=== PATIENT | female | born 1950 | race Caucasian/White ===

== ENCOUNTER 2019-10-08 19:51 | Inpatient (IN) | payer MEDICARE, OTHER ==
[~2019-10-08] VITALS: Ht 162.6 cm; Wt 72.2 kg
[2019-10-08] MEDS ORDERED: ASPIRIN 81 MG CHEW (CHILDREN'S ASA) PO ONE (20:30)
[2019-10-08 20:42] LABS: BASOPHILS # (AUTO) 0.1 10^3/uL (0.0-0.1); BASOPHILS % (AUTO) 2 % (0-10); EOSINOPHILS # (AUTO) 0.1 10^3/uL (0.0-0.3); EOSINOPHILS % (AUTO) 2 % (0-10); HEMATOCRIT 40 % (35-52); HEMOGLOBIN 13.7 G/DL (11.5-16.0); LYMPHOCYTES # (AUTO) 1.4 X 10^3 (1.0-4.0); LYMPHOCYTES % (AUTO) 17 % (12-44); MEAN CORPUSCULAR HEMOGLOBIN 29 PG (25-34); MEAN CORPUSCULAR HGB CONC 34 G/DL (32-36); MEAN CORPUSCULAR VOLUME 85 FL (80-99); MEAN PLATELET VOLUME 11.6 FL (7.4-10.4); MONOCYTES # (AUTO) 0.8 X 10^3 (0.0-1.0); MONOCYTES % (AUTO) 10 % (0-12); NEUTROPHILS # (AUTO) 5.7 X 10^3 (1.8-7.8); NEUTROPHILS % (AUTO) 70 % (42-75); PLATELET COUNT 283 10^3/uL (130-400); RED CELL DISTRIBUTION WIDTH 12.8 % (10.0-14.5); WHITE BLOOD COUNT 8.1 10^3/uL (4.3-11.0)
[2019-10-08 20:53] LABS: INR 0.9 (0.8-1.4); PROTHROMBIN TIME PATIENT 12.6 SEC (12.2-14.7)
--- NOTE | 2019-10-08 21:00 | Diagnostic Imaging Report ---
INDICATION: History of previous cardiac surgery. Abnormal sensation in chest, dizziness TECHNIQUE: Two view chest 8:17 PM CORRELATION STUDY: None FINDINGS: Poststernotomy changes. Heart size and vasculature within normal limits. The lungs are clear with no consolidating infiltrate. There is no significant pleural effusion or pneumothorax. Visualized osseous structures are unremarkable. IMPRESSION: 1. Poststernotomy changes. Negative for acute abnormality. Dictated by: Dictated on workstation # [id number]
[2019-10-08 21:21] LABS: BUN/CREATININE RATIO 30; CARBON DIOXIDE 13 MMOL/L (21-32); CHLORIDE 94 MMOL/L (98-107); CREATININE SERUM 0.77 MG/DL (0.60-1.30); GFR ESTIMATED > 60; POTASSIUM 4.6 MMOL/L (3.6-5.0); SODIUM 131 MMOL/L (135-145)
[2019-10-08 21:22] LABS: BILIRUBIN,TOTAL 0.4 MG/DL (0.1-1.0); CALCIUM 9.5 MG/DL (8.5-10.1); GLUCOSE 547 MG/DL (70-105)
[2019-10-08 21:23] LABS: ALANINE AMINOTRANSFERASE 16 U/L (0-55); ALBUMIN 4.5 GM/DL (3.2-4.5); ALKALINE PHOSPHATASE 88 U/L (40-136); TOTAL PROTEIN 7.7 GM/DL (6.4-8.2)
--- NOTE | 2019-10-08 21:24 | ED Cardiac General ---
History of Present Illness General Chief Complaint: Chest Pain Stated Complaint: DIZZINESS,CHEST PRESSURE Nursing Triage Note: PT AMBULATE TO ROOM FS05 WITH C/O CHEST PRESSURE STARTING AT 1200 TODAY. PT HAS HX OF CARDIAC SURGERY, AORTIC VALVE REPLACEMENT Source: patient, other (friends) History of Present Illness Date Seen by Provider: Oct 08, 2019 Time Seen by Provider: 21:23 Initial Comments 69-year-old female presenting with complaints of dizziness and feeling lightheaded. She has had some chest pressure that has been present since noon. She has not been feeling well for the last few months and it has been worse in the last week. She also has been having increased thirst and increased urination . She denies any fever or chills. She has had trouble concentrating. She had unsteady gait today and felt like she was more off balance than normal and that maybe her blood sugar was low. She has a strong family history for diabetes which made her think that her sugar might be low. She has a history of multiple back surgeries as well as multiple cardiac surgeries. When she had called her friends to tell them that she was canceling plans for tomorrow because she didn't feel well they insisted that she come to the emergency department to be evaluated. She denies any nausea or vomiting. She has had no cough or congestion. She denies any pain with urination. She denies any diarrhea. NTG SL LASTEX OPERATOR: No ASA po LASTEX OPERATOR: Yes (81MG AT 1000) Allergies and Home Medications Allergies Coded Allergies: hydrocodone (Verified Allergy, Unknown, 10/08/19) oxycodone (Verified Allergy, Unknown, 10/08/19) Patient Home Medication List Home Medication List Reviewed: Yes Review of Systems Review of Systems Constitutional: No chills, No diaphoresis; dizziness; No fever; malaise EENTM: Blurred Vision (having difficulty with her vision in the last few months), Other (constantly dry mouth) Respiratory: Denies Cough; SOA With Exertion Cardiovascular: Chest Pain (pressure in her chest today since noon); Denies Edema, Denies Irregular Heart Rate; Lightheadedness; Denies Palpitations, Denies Syncope Gastrointestinal: Denies Abdominal Pain, Denies Diarrhea, Denies Nausea, Denies Vomiting Genitourinary: Denies Burning, Denies Drainage; Frequency; Denies Pain Musculoskeletal: back pain (chronic from her multiple surgeries) Skin: No change in color, No rash Psychiatric/Neurological: Denies Headache; Paresthesia (chronic in her left leg from multiple spinal surgeries. This makes it where she has some difficulty with ambulation.) Endocrine: Increased Thrist, Increased Urine Hematologic/Lymphatic: No Symptoms Reported All Other Systems Reviewed Negative Unless Noted: Yes (Negative excepted noted.) Past Uvpuoeg-Kinchv-Ysujbk Hx Past Med/Social Hx: Reviewed Nursing Past Med/Soc Hx Patient Social History Alcohol Use: Denies Use Recreational Drug Use: No Smoking Status: Never a Smoker 2nd Hand Smoke Exposure: No Recent Foreign Travel: No Contact w/Someone Who Travel: No Recent Infectious Disease Expo: No Recent Hopitalizations: No Physical Abuse: No Sexual Abuse: No Mistreated: No Fear: No Seasonal Allergies Seasonal Allergies: Yes Past Medical History Surgeries: Yes (EXPLORATORY SURGERY ON OVERIES, BACK SURGERY, VAGINAL PROLAPSE, AORTIC VALV) Adenoidectomy, Appendectomy, Hysterectomy, Tonsillectomy Respiratory: No Cardiac: Yes High Cholesterol, Hypertension, Valvular Heart Disease Neurological: No Genitourinary: Yes UTI-Chronic Gastrointestinal: Yes Gastroesophageal Reflux Musculoskeletal: Yes Back Injury Endocrine: No HEENT: Yes Cataract Loss of Vision: Denies Hearing Impairment: Denies Cancer: No Psychosocial: Yes Depression Integumentary: No Blood Disorders: No Family Medical History Diabetes (multiple family members with diabetes) Physical Exam Vital Signs Vital Signs - First Documented 10/08/19 10/08/19 20:00 20:02 Temp 37.1 Pulse 104 Resp 18 B/P (MAP) 144/79 (100) O2 Delivery Room Air Capillary Refill : Less Than 3 Seconds Height, Weight, BMI Height: '" Weight: lbs. oz. kg; 24.00 BMI Method: General Appearance: No Apparent Distress, WD/WN HEENT: PERRL/EOMI; No Moist Mucous Membranes (dry mucous membranes) Neck: Full Range of Motion, Normal Inspection, Non Tender, Supple Respiratory: Chest Non Tender, Lungs Clear, Normal Breath Sounds, No Accessory Muscle Use, No Respiratory Distress Cardiovascular: Regular Rate, Rhythm, Normal Peripheral Pulses Gastrointestinal: Normal Bowel Sounds, No Pulsatile Mass, Non Tender, Soft Extremity: Normal Capillary Refill, Non Tender, No Calf Tenderness, No Pedal Edema Neurologic/Psychiatric: Alert, Oriented x3, Normal Mood/Affect, cv tech II-XII Norm as Tested Skin: Normal Color, Warm/Dry Progress/Results/Core Measures Results/Orders Lab Results Laboratory Tests Test 10/08/19 20:35 10/08/19 22:48 Range/Units White Blood Count 8.1 4.3-11.0 10^3/uL Red Blood Count 4.71 4.35-5.85 10^6/uL Hemoglobin 13.7 11.5-16.0 G/DL Hematocrit 40 35-52 % Mean Corpuscular Volume 85 80-99 FL Mean Corpuscular Hemoglobin 29 25-34 PG Mean Corpuscular Hemoglobin Concent 34 32-36 G/DL Red Cell Distribution Width 12.8 10.0-14.5 % Platelet Count 283 130-400 10^3/uL Mean Platelet Volume 11.6 H 7.4-10.4 FL Neutrophils (%) (Auto) 70 42-75 % Lymphocytes (%) (Auto) 17 12-44 % Monocytes (%) (Auto) 10 0-12 % Eosinophils (%) (Auto) 2 0-10 % Basophils (%) (Auto) 2 0-10 % Neutrophils # (Auto) 5.7 1.8-7.8 X 10^3 Lymphocytes # (Auto) 1.4 1.0-4.0 X 10^3 Monocytes # (Auto) 0.8 0.0-1.0 X 10^3 Eosinophils # (Auto) 0.1 0.0-0.3 10^3/uL Basophils # (Auto) 0.1 0.0-0.1 10^3/uL Prothrombin Time 12.6 12.2-14.7 SEC INR Comment 0.9 0.8-1.4 Activated Partial Thromboplast Time 25 24-35 SEC Sodium Level 131 L 135-145 MMOL/L Potassium Level 4.6 3.6-5.0 MMOL/L Chloride Level 94 L 98-107 MMOL/L Carbon Dioxide Level 13 L 21-32 MMOL/L Anion Gap 24 H 5-14 MMOL/L Blood Urea Nitrogen 23 H 7-18 MG/DL Creatinine 0.77 0.60-1.30 MG/DL Estimat Glomerular Filtration Rate > 60 BUN/Creatinine Ratio 30 Glucose Level 547 *H 70-105 MG/DL Calcium Level 9.5 8.5-10.1 MG/DL Corrected Calcium 9.1 8.5-10.1 MG/DL Magnesium Level 2.0 1.6-2.4 MG/DL Total Bilirubin 0.4 0.1-1.0 MG/DL Aspartate Amino Transf (AST/SGOT) 21 5-34 U/L Alanine Aminotransferase (ALT/SGPT) 16 0-55 U/L Alkaline Phosphatase 88 40-136 U/L Troponin I < 0.30 <0.30 NG/ML Pro-B-Type Natriuretic Peptide 79.7 H <75.0 PG/ML Total Protein 7.7 6.4-8.2 GM/DL Albumin 4.5 3.2-4.5 GM/DL Urine Color YELLOW Urine Clarity CLEAR Urine pH 5.5 5-9 Urine Specific Donora 1.015 L 1.016-1.022 Urine Protein NEGATIVE NEGATIVE Urine Glucose (UA) 3+ H NEGATIVE Urine Ketones 3+ H NEGATIVE Urine Nitrite NEGATIVE NEGATIVE Urine Bilirubin NEGATIVE NEGATIVE Urine Urobilinogen 0.2 < = 1.0 MG/DL Urine Leukocyte Esterase NEGATIVE NEGATIVE Urine RBC (Auto) NEGATIVE NEGATIVE Urine RBC NONE /HPF Urine WBC NONE /HPF Urine Crystals NONE /LPF Urine Bacteria FEW H /HPF Urine Casts NONE /LPF Urine Mucus NEGATIVE /LPF Urine Culture Indicated NO My Orders Orders - DANIELA ISIDRO MD Cbc With Automated Diff (10/08/19 20:19) Magnesium (10/08/19 20:19) Ekg Tracing (10/08/19 20:19) Comprehensive Metabolic Panel (10/08/19 20:19) Protime With Inr (10/08/19 20:19) Partial Thromboplastin Time (10/08/19 20:19) O2 (10/08/19 20:19) Monitor-Rhythm Ecg Trace Only (10/08/19 20:19) Aspirin Chewable Tablet (Baby Aspirin Ch (10/08/19 20:30) Ed Iv/Invasive Line Start (10/08/19 20:19) Troponin I Fs (10/08/19 20:19) Probnp Fs (10/08/19 20:19) Chest Pa/Lat (2 View) (10/08/19 20:19) Ua Culture If Indicated (10/08/19 21:50) Ns Iv 1000 Ml (Sodium Chloride 0.9%) (10/08/19 22:30) Insulin (Regular) Human (Humulin R (Per (10/08/19 22:30) Medications Given in ED Current Medications Medications Dose Ordered Sig/Oziel Route Start Time Stop Time Status Last Admin Dose Admin Aspirin 324 mg ONCE ONCE PO 10/08/19 20:30 10/08/19 20:31 DC 10/08/19 20:33 324 MG Insulin Human Regular 6 unit ONCE ONCE SC 10/08/19 22:30 10/08/19 22:31 DC 10/08/19 23:09 6 UNIT Vital Signs/I&O 10/08/19 10/08/19 20:00 20:02 Temp 37.1 Pulse 104 Resp 18 B/P (MAP) 144/79 (100) O2 Delivery Room Air Room Air Blood Pressure Mean: 100 POS Progress Progress Note #1: Progress Note Obtain labs with electrocardiogram and chest x-ray. Cardiac enzymes to evaluate for her chest pressure that she has had since noon. Progress Note #2: Progress Note Chest x-ray does not show any acute process. Her electrocardiogram shows a sinus tachycardia with heart rate of 109 bpm. She has no acute ST elevation or ischemic changes. There is no prior tracing available for comparison. Her blood count does not show acute significant abnormality. Her chemistry panel however came back showing elevated glucose with findings for DKA. She denies having a diagnosis of diabetes herself but has multiple family members with diabetes. We will obtain a urinalysis as well as pH of her blood and discussed with Dr. Nichole from [facility] about admission. Progress Note #3: Progress Note Discussed with Dr. Nichole and she accepted the patient for admission. Due to the lab values showing DKA she recommended admitting the patient to the ICU for DKA protocol and placing her on an insulin drip. The urinalysis does show evidence of ketones. Her pH was 7.33. Initial ECG Impression Date: Oct 08, 2019 Initial ECG Impression Time: 20:01 Initial ECG Rate: 109 Initial ECG Rhythm: S.Tach Initial ECG Comparisson: No Previous ECG Available Comment Sinus tachycardia with heart rate 109 bpm. NJ interval of 197 ms. QT interval 295 ms with a QT corrected interval of 398 ms. There is no acute ST elevation or ischemic change. No prior tracing available for comparison. Diagnostic Imaging Diagonstic Imaging: Xray Plain Films/CT/US/NM/MRI: chest Comments NAME: SUNIL MARSHALL [facility] REC#: [id number] PT STATUS: REG ER : 1950 PHYSICIAN: DANIELA ISIDRO MD ADMIT DATE: 10/08/19/ER FS Signed POSDate of Exam:10/08/19 CHEST PA/LAT (2 VIEW) INDICATION: History of previous cardiac surgery. Abnormal sensation in chest, dizziness TECHNIQUE: Two view chest 8:17 PM CORRELATION STUDY: None FINDINGS: Poststernotomy changes. Heart size and vasculature within normal limits. The lungs are clear with no consolidating infiltrate. There is no significant pleural effusion or pneumothorax. Visualized osseous structures are unremarkable. IMPRESSION: 1. Poststernotomy changes. Negative for acute abnormality. Dictated by: Dictated on workstation # [id number] Dict: 10/08/192055 Trans: 10/08/192225 [id number] Interpreted by: SHAKEEL SOUSA DO Electronically signed by: SHAKEEL SOUSA DO 10/08/192225 Departure Communication (Admissions) Time/Spoke to Admitting Phy: 22:[address] Nichole about the patient's test results and although I did not have her urinalysis her pH back cats to show for ketones or her pH she does show acidosis on her chemistry panel and with her new onset and age will start fluids and an insulin drip. Follow the DKA order set and admit to the ICU. Impression Primary Impression: Diabetic ketoacidosis without coma Qualified Codes: E13.10 - Other specified diabetes mellitus with ketoacidosis without coma Additional Impression: Diabetes mellitus, new onset Disposition: ADMITTED INPATIENT Condition: Stable Admissions Decision to Admit Reason: Admit from ER (General) Decision to Admit/Date: Oct 08, 2019 Time/Decision to Admit Time: 22:54 Departure-Patient Inst. Referrals: RONALD MI MD (PCP) Primary Care Physician DANIELA ISIDRO MD Oct 08, 2019 21:24 POS
[2019-10-08] MEDS ORDERED: inSUlin (REGULAR) HUMAN 1 UNIT/0.01 ML (CHARGE PER UNIT) SC ONE (22:30)
[2019-10-08] MEDS ORDERED: NS IV 1000 ML 1,000 ML IV SCH (22:30)
[2019-10-08] MEDS ORDERED: inSUlin REGULAR TPN/DRIP ONLY 250 UNITS in NORMAL SALINE 250 ML IV SCH (23:00)
[2019-10-08 23:04] LABS: CLARITY,URINE CLEAR; COLOR,URINE YELLOW; PH,URINE 5.5 (5-9); PROTEIN,URINE NEGATIVE (NEGATIVE)
[2019-10-08 23:05] LABS: BACTERIA,URINE FEW /HPF; BILIRUBIN,URINE NEGATIVE (NEGATIVE); GLUCOSE, URINE (UA) 3+ (NEGATIVE); KETONES,URINE 3+ (NEGATIVE); LEUKOCYTE ESTERASE ,URINE NEGATIVE (NEGATIVE); NITRITE,URINE NEGATIVE (NEGATIVE)
[2019-10-08 23:19] LABS: ABG PCO2 25 MMHG (35-45)
[2019-10-08 23:20] LABS: ABG PO2 174 MMHG (79-93)
[2019-10-08 23:21] LABS: ABG BASE EXCESS -11.1 MMOL/L (-2.5-2.5); ABG OXYGEN SATURATION 99 % (94-100); CAPILLARY BLOOD PH 7.33 (7.37-7.43); INSPIRED O2 ROOM AIR
[2019-10-08] MEDS ORDERED: NS (IVPB) 250 ML ONE (23:22)
[2019-10-09] VITALS (25 sets, daily range): BP systolic 90–153; BP diastolic 46–92
--- NOTE | 2019-10-09 00:20 | NUR ---
ATTEMT TO CALL REPORT. RN WAS IN PT ROOM AND UNABLE TO ANSWER CALL.
--- NOTE | 2019-10-09 00:42 | NUR ---
ANOTHER ATTEMPT TO CALL REPORT. INFORMED THAT RN WILL RETURN CALL WHEN AVAILABLE. I INFORMED ICU THAT EMS WAS EN ROUTE WITH PT.
[2019-10-09] MEDS ORDERED: D5 1/2 NS 1000 ML IV SOLUTION 1,000 ML IV ONE (01:37)
[2019-10-09] MEDS ORDERED: POTASSIUM CL 10MEQ/50ML IVPB 50 ML IV ONE (01:37)
[2019-10-09] MEDS ORDERED: NS IV 1000 ML 1,000 ML IV SCH (01:41)
[2019-10-09] MEDS ORDERED: POTASSIUM CL 10MEQ/50ML IVPB 50 ML IV SCH ×3 (01:45→06:00)
[2019-10-09] MEDS ORDERED: inSUlin REGULAR TPN/DRIP ONLY 250 UNITS in NORMAL SALINE 250 ML IV SCH (01:45)
[2019-10-09] MEDS: 1/2 NS IV SOLUTION 1,000 ML IV SCH ×4 (01:49→13:30)
[2019-10-09] MEDS: POTASSIUM CL 10MEQ/50ML IVPB 50 ML IV SCH ×8 (01:50→14:48)
[2019-10-09] MEDS: D5 1/2 NS 1000 ML IV SOLUTION 1,000 ML IV SCH ×3 (01:50→11:46)
[2019-10-09 02:03] LABS: BASOPHILS # (AUTO) 0.1 10^3/uL (0.0-0.1); BASOPHILS % (AUTO) 1 % (0-10); EOSINOPHILS # (AUTO) 0.1 10^3/uL (0.0-0.3); EOSINOPHILS % (AUTO) 2 % (0-10); HEMATOCRIT 36 % (35-52); HEMOGLOBIN 12.6 G/DL (11.5-16.0); LYMPHOCYTES # (AUTO) 1.8 X 10^3 (1.0-4.0); LYMPHOCYTES % (AUTO) 27 % (12-44); MEAN CORPUSCULAR HEMOGLOBIN 29 PG (25-34); MEAN CORPUSCULAR HGB CONC 35 G/DL (32-36); MEAN CORPUSCULAR VOLUME 83 FL (80-99); MEAN PLATELET VOLUME 11.3 FL (7.4-10.4); MONOCYTES # (AUTO) 0.9 X 10^3 (0.0-1.0); MONOCYTES % (AUTO) 13 % (0-12); NEUTROPHILS # (AUTO) 3.9 X 10^3 (1.8-7.8); NEUTROPHILS % (AUTO) 58 % (42-75); PLATELET COUNT 249 10^3/uL (130-400); RED CELL DISTRIBUTION WIDTH 12.9 % (10.0-14.5); WHITE BLOOD COUNT 6.8 10^3/uL (4.3-11.0)
[2019-10-09] MEDS ORDERED: ONDANSETRON 4 MG/2 ML (SDV) Z0FRAN IV PRN (02:15)
[2019-10-09 02:22] LABS: BUN/CREATININE RATIO 22; CARBON DIOXIDE 13 MMOL/L (21-32); CHLORIDE 110 MMOL/L (98-107); CREATININE SERUM 0.87 MG/DL (0.60-1.30); GFR ESTIMATED > 60; GLUCOSE 133 MG/DL (70-105); MAGNESIUM 1.9 MG/DL (1.6-2.4); PHOSPHORUS 2.3 MG/DL (2.3-4.7); POTASSIUM 3.3 MMOL/L (3.6-5.0); SODIUM 137 MMOL/L (135-145)
--- NOTE | 2019-10-09 03:34 | Pulmonary Consultation ---
TOBIN MAURICE MEDICAL STUDENT 10/09/19 0334: History of Present Illness History of Present Illness Date of Consultation 10/09/19 03:30 Time Seen by Provider: 03:30 Date of Admission History of Present Illness 69 year old female with PMHx of of HTN, HLD, previous aortic valve replacement was admitted from the ED yesterday for DKA. Pt had stated she had not been feeling well over the last month which worsened over the last week. Pt states she has had increased thirst and urination as well as feeling off balance and that she thought her blood sugar was low. Pt states that yesterday she felt weak and dizzy and fell which prompted her to visit the ED. Pt states that she had been following up with her PCP in [place] but had missed her last couple appointment. Pt states that she had been getting her A1c checked and that prior to this point she believes it has been running in the 6's. Pt states that she feels much better than she did yesterday. Pt denies any abdominal pain, N/V/D, dysuria. Allergies and Home Medications Allergies Coded Allergies: hydrocodone (Verified Allergy, Unknown, 10/08/19) oxycodone (Verified Allergy, Unknown, 10/08/19) Past Fjlswvq-Imckva-Gbahen Hx Past Med/Social Hx: Reviewed Nursing Past Med/Soc Hx, Reviewed and Corrections made Patient Social History Alcohol Use: Rarely Uses Recreational Drug Use: No Smoking Status: Never a Smoker 2nd Hand Smoke Exposure: No Recent Foreign Travel: No Contact w/Someone Who Travel: No Recent Infectious Disease Expo: No Recent Hopitalizations: No Physical Abuse: No Sexual Abuse: No Mistreated: No Fear: No Seasonal Allergies Seasonal Allergies: Yes Past Medical History Surgeries: Yes (EXPLORATORY SURGERY ON OVERIES, BACK SURGERY, VAGINAL PROLAPSE, AORTIC VALV) Adenoidectomy, Appendectomy, Hysterectomy, Tonsillectomy Respiratory: No Cardiac: Yes High Cholesterol, Hypertension, Valvular Heart Disease Neurological: No Genitourinary: Yes UTI-Chronic Gastrointestinal: Yes Gastroesophageal Reflux Musculoskeletal: Yes Back Injury Endocrine: No HEENT: Yes Cataract Loss of Vision: Denies Hearing Impairment: Denies Cancer: No Psychosocial: Yes Depression Integumentary: No Blood Disorders: No Family Medical History Diabetes (multiple family members with diabetes) Review of Systems Constitutional: No: Fever, Chills Eyes: No: Pain ENT: No: Ear pain Respiratory: No: Cough, Shortness of breath Cardiovascular: No: Chest Pain, Palpitations Gastrointestinal: No: Nausea, Vomiting, Abdominal Pain Genitourinary: Dysuria Musculoskeletal: No: other Skin: No: Rash Neurological: Weakness Sepsis Event Evaluation Height, Weight, BMI Height: '" Weight: lbs. oz. kg; 24.62 BMI Method: Exam Exam Vital Signs Date Time Temp Pulse Resp B/P (MAP) Pulse Ox O2 Delivery O2 Flow Rate FiO2 10/09/19 03:00 92 121/67 (85) 96 Room Air 10/09/19 02:30 94 21 117/72 (87) 97 Room Air 10/09/19 02:15 88 13 126/76 (93) 96 Room Air 10/09/19 02:00 92 15 120/73 (89) 96 Room Air 10/09/19 01:45 99 20 126/75 (92) 95 Room Air 10/09/19 01:35 104 10/09/19 01:34 36.4 97 12 125/91 (102) 95 Room Air 10/09/19 00:50 101 18 128/70 98 Room Air 10/08/19 20:02 37.1 104 18 144/79 (100) Room Air 10/08/19 20:00 Room Air Height & Weight Height: '" Weight: lbs. oz. kg; 24.62 BMI Method: General Appearance: No Apparent Distress, WD/WN HEENT: PERRL/EOMI; No Moist Mucous Membranes (dry mucous membranes) Neck: Full Range of Motion, Normal Inspection, Non Tender, Supple Respiratory: Chest Non Tender, Lungs Clear, Normal Breath Sounds, No Accessory Muscle Use, No Respiratory Distress Cardiovascular: Regular Rate, Rhythm, Normal Peripheral Pulses Capillary Refill: Less Than 3 Seconds Extremity: Normal Capillary Refill, Non Tender, No Calf Tenderness Neurologic/Psychiatric: Alert, Oriented x3, Normal Mood/Affect, modeling director II-XII Norm as Tested Skin: Normal Color, Warm/Dry Results Lab Laboratory Tests 10/08/19 20:35 10/09/19 01:50 Assessment/Plan Assessment/Plan DKA - improving -Glucose now 223, gap at 14 -pt currently on D51/2NS at 250cc/hr -Insulin gtt at 5u/hr -labs currently being redrawn -will continue to monitor Hypokalemia -replace History of HTN History of HLD SURESH GOMEZ DO 10/09/19 0449: History of Present Illness History of Present Illness Time Seen by Provider: 04:44 History of Present Illness 69yo presented to ED dizziness and s/p fall. She was found to have acute DKA in ED. She has no hx of DM in the past. SHe was admitted to ICU with DKA protocol. Allergies and Home Medications Allergies Coded Allergies: hydrocodone (Verified Allergy, Unknown, 10/08/19) oxycodone (Verified Allergy, Unknown, 10/08/19) Review of Systems Time Seen by Provider: 04:47 Constitutional: No: Fever, Chills Eyes: No: Pain ENT: No: Ear pain Respiratory: No: Cough, Shortness of breath Cardiovascular: No: Chest Pain, Palpitations Gastrointestinal: No: Nausea, Vomiting, Abdominal Pain Genitourinary: Dysuria Musculoskeletal: No: other Skin: No: Rash Neurological: Weakness Exam Exam General Appearance: No Apparent Distress, WD/WN HEENT: PERRL/EOMI; No Moist Mucous Membranes (dry mucous membranes) Neck: Full Range of Motion, Normal Inspection, Non Tender, Supple Respiratory: Chest Non Tender, Lungs Clear, Normal Breath Sounds, No Accessory Muscle Use, No Respiratory Distress Cardiovascular: Regular Rate, Rhythm, Normal Peripheral Pulses Capillary Refill: Less Than 3 Seconds Extremity: Normal Capillary Refill, Non Tender, No Calf Tenderness Neurologic/Psychiatric: Alert, Oriented x3, Normal Mood/Affect, modeling director II-XII Norm as Tested Skin: Normal Color, Warm/Dry Assessment/Plan Assessment/Plan DKA - improving -PT is still in DKA will continue insulin gtt. -labs currently being redrawn -will continue to monitor Hypokalemia, hypophos -replace Hx of Aortic valve replacement per PT -She is not on anticoagulation at home -Will consult Cardiology for recommendations. -Will give Lovenox 60mg x 1 for now History of HTN History of HLD TOBIN MAURICE MEDICAL STUDENT Oct 09, 2019 03:34 SURESH TANG DO Oct 09, 2019 04:49 POS
[2019-10-09 04:38] LABS: BUN/CREATININE RATIO 21; CALCIUM 8.2 MG/DL (8.5-10.1); CARBON DIOXIDE 13 MMOL/L (21-32); CHLORIDE 110 MMOL/L (98-107); CREATININE SERUM 0.81 MG/DL (0.60-1.30); GFR ESTIMATED > 60; GLUCOSE 202 MG/DL (70-105); POTASSIUM 3.6 MMOL/L (3.6-5.0); SODIUM 135 MMOL/L (135-145)
[2019-10-09] MEDS ORDERED: POTASSIUM PHOSPHATE INJ 30 MM in NS (IVPB) 250 ML IV ONE (05:00)
[2019-10-09] MEDS ORDERED: ENOXAPARIN 60 MG/0.6 ML (LOVENOX) SYR SC ONE (05:00)
[2019-10-09 05:14] LABS: MAGNESIUM 1.7 MG/DL (1.6-2.4); PHOSPHORUS 2.5 MG/DL (2.3-4.7)
[2019-10-09] MEDS ORDERED: KCL 20 MEQ TAB (K-DUR) PO SCH (06:00)
[2019-10-09] MEDS ORDERED: MAGNESIUM 1 GM/100 ML IVPB 100 ML IV SCH (06:00)
[2019-10-09] MEDS: MAGNESIUM 1 GM/100 ML IVPB 100 ML IV SCH ×2 (06:34→07:46)
--- NOTE | 2019-10-09 07:10 | Consultation-Cardiology ---
HPI-Cardiology Cardiology Consultation Date of Consultation 10/09/19 Date of Admission Time Seen by Provider: 07:05 Indication: Diabetic ketoacidosis HPI 69 years old lady with history of aortic valve replacement. Has been followed in [facility] with Dr. Vazquez, has been complaining of fatigue and loss of energy, admitted for diabetic ketoacidosis. She denied any chest pain, reported increasing weakness and loss of energy. No syncope. Home Medications & Allergies Allergies: Coded Allergies: hydrocodone (Verified Allergy, Unknown, 10/08/19) oxycodone (Verified Allergy, Unknown, 10/08/19) Home Medication List Reviewed: Yes GDG-[id number]-[id number] Hx Patient Social History Marital Status: Alcohol Use: Rarely Uses Recreational Drug Use: No Smoking Status: Never a Smoker 2nd Hand Smoke Exposure: No Recent Foreign Travel: No Recent Infectious Disease Expo: No Recent Hopitalizations: No Past Medical History Discussed below Family Medical History Significant Family History: Diabetes (multiple family members with diabetes) Family Medical Hx Family history of atherosclerosis, father had bypass surgery Review of Systems-General Review of Systems Constitutional: see HPI; No chills, No diaphoresis; dizziness; No fever; malaise EENTM: see HPI, no symptoms reported Respiratory: no symptoms reported, see HPI Cardiovascular: see HPI Gastrointestinal: no symptoms reported, see HPI Genitourinary: no symptoms reported, see HPI Musculoskeletal: back pain (chronic from her multiple surgeries) Skin: No change in color, No rash Psychiatric/Neurological: Denies Headache; Paresthesia (chronic in her left leg from multiple spinal surgeries. This makes it where she has some difficulty with ambulation.) All Other Systems Reviewed Negative Unless Noted: Yes (Negative excepted noted.) Reviewed Test Results Reviewed Test Results Lab Laboratory Tests Test 10/08/19 20:35 10/08/19 22:48 10/08/19 23:13 10/09/19 01:33 Range/Units White Blood Count 8.1 4.3-11.0 10^3/uL Red Blood Count 4.71 4.35-5.85 10^6/uL Hemoglobin 13.7 11.5-16.0 G/DL Hematocrit 40 35-52 % Mean Corpuscular Volume 85 80-99 FL Mean Corpuscular Hemoglobin 29 25-34 PG Mean Corpuscular Hemoglobin Concent 34 32-36 G/DL Red Cell Distribution Width 12.8 10.0-14.5 % Platelet Count 283 130-400 10^3/uL Mean Platelet Volume 11.6 H 7.4-10.4 FL Neutrophils (%) (Auto) 70 42-75 % Lymphocytes (%) (Auto) 17 12-44 % Monocytes (%) (Auto) 10 0-12 % Eosinophils (%) (Auto) 2 0-10 % Basophils (%) (Auto) 2 0-10 % Neutrophils # (Auto) 5.7 1.8-7.8 X 10^3 Lymphocytes # (Auto) 1.4 1.0-4.0 X 10^3 Monocytes # (Auto) 0.8 0.0-1.0 X 10^3 Eosinophils # (Auto) 0.1 0.0-0.3 10^3/uL Basophils # (Auto) 0.1 0.0-0.1 10^3/uL Prothrombin Time 12.6 12.2-14.7 SEC INR Comment 0.9 0.8-1.4 Activated Partial Thromboplast Time 25 24-35 SEC Sodium Level 131 L 135-145 MMOL/L Potassium Level 4.6 3.6-5.0 MMOL/L Chloride Level 94 L 98-107 MMOL/L Carbon Dioxide Level 13 L 21-32 MMOL/L Anion Gap 24 H 5-14 MMOL/L Blood Urea Nitrogen 23 H 7-18 MG/DL Creatinine 0.77 0.60-1.30 MG/DL Estimat Glomerular Filtration Rate > 60 BUN/Creatinine Ratio 30 Glucose Level 547 *H 70-105 MG/DL Calcium Level 9.5 8.5-10.1 MG/DL Corrected Calcium 9.1 8.5-10.1 MG/DL Magnesium Level 2.0 1.6-2.4 MG/DL Total Bilirubin 0.4 0.1-1.0 MG/DL Aspartate Amino Transf (AST/SGOT) 21 5-34 U/L Alanine Aminotransferase (ALT/SGPT) 16 0-55 U/L Alkaline Phosphatase 88 40-136 U/L Troponin I < 0.30 <0.30 NG/ML Pro-B-Type Natriuretic Peptide 79.7 H <75.0 PG/ML Total Protein 7.7 6.4-8.2 GM/DL Albumin 4.5 3.2-4.5 GM/DL Urine Color YELLOW Urine Clarity CLEAR Urine pH 5.5 5-9 Urine Specific [place] 1.015 L 1.016-1.022 Urine Protein NEGATIVE NEGATIVE Urine Glucose (UA) 3+ H NEGATIVE Urine Ketones 3+ H NEGATIVE Urine Nitrite NEGATIVE NEGATIVE Urine Bilirubin NEGATIVE NEGATIVE Urine Urobilinogen 0.2 < = 1.0 MG/DL Urine Leukocyte Esterase NEGATIVE NEGATIVE Urine RBC (Auto) NEGATIVE NEGATIVE Urine RBC NONE /HPF Urine WBC NONE /HPF Urine Crystals NONE /LPF Urine Bacteria FEW H /HPF Urine Casts NONE /LPF Urine Mucus NEGATIVE /LPF Urine Culture Indicated NO Arterial Blood Partial Pressure CO2 25 L 35-45 MMHG Arterial Blood Partial Pressure O2 174 H 79-93 MMHG Arterial Blood HCO3 13 *L 23-27 MMOL/L Arterial Blood Oxygen Saturation 99 94-100 % Arterial Blood Base Excess -11.1 L -2.5-2.5 MMOL/L Capillary Blood pH 7.33 L 7.37-7.43 Blood Gas Inspired Oxygen ROOM AIR Glucometer 150 H 70-110 MG/DL Test 10/09/19 01:50 10/09/19 03:30 10/09/19 04:01 10/09/19 04:38 Range/Units White Blood Count 6.8 4.3-11.0 10^3/uL Red Blood Count 4.35 4.35-5.85 10^6/uL Hemoglobin 12.6 11.5-16.0 G/DL Hematocrit 36 35-52 % Mean Corpuscular Volume 83 80-99 FL Mean Corpuscular Hemoglobin 29 25-34 PG Mean Corpuscular Hemoglobin Concent 35 32-36 G/DL Red Cell Distribution Width 12.9 10.0-14.5 % Platelet Count 249 130-400 10^3/uL Mean Platelet Volume 11.3 H 7.4-10.4 FL Neutrophils (%) (Auto) 58 42-75 % Lymphocytes (%) (Auto) 27 12-44 % Monocytes (%) (Auto) 13 H 0-12 % Eosinophils (%) (Auto) 2 0-10 % Basophils (%) (Auto) 1 0-10 % Neutrophils # (Auto) 3.9 1.8-7.8 X 10^3 Lymphocytes # (Auto) 1.8 1.0-4.0 X 10^3 Monocytes # (Auto) 0.9 0.0-1.0 X 10^3 Eosinophils # (Auto) 0.1 0.0-0.3 10^3/uL Basophils # (Auto) 0.1 0.0-0.1 10^3/uL Sodium Level 137 135 135-145 MMOL/L Potassium Level 3.3 L 3.6 3.6-5.0 MMOL/L Chloride Level 110 #H 110 H 98-107 MMOL/L Carbon Dioxide Level 13 L 13 L 21-32 MMOL/L Anion Gap 14 12 5-14 MMOL/L Blood Urea Nitrogen 19 H 17 7-18 MG/DL Creatinine 0.87 0.81 0.60-1.30 MG/DL Estimat Glomerular Filtration Rate > 60 > 60 BUN/Creatinine Ratio 22 21 Glucose Level 133 H 202 H 70-105 MG/DL Calcium Level 9.0 8.2 L 8.5-10.1 MG/DL Phosphorus Level 2.3 2.5 2.3-4.7 MG/DL Magnesium Level 1.9 1.7 1.6-2.4 MG/DL Beta-Hydroxybutyrate (Chem panel) 1.45 H 0.00-0.27 MMOL/L Glucometer 223 H 196 H 70-110 MG/DL Test 10/09/19 05:00 10/09/19 05:43 10/09/19 06:39 Range/Units Lactic Acid Level 0.77 0.50-2.00 MMOL/L Glucometer 181 H 165 H 70-110 MG/DL Physical Exam Physical Exam Vital Signs Vital Signs - First Documented 10/08/19 10/08/19 10/09/19 20:00 20:02 00:50 Temp 37.1 Pulse 104 Resp 18 B/P (MAP) 144/79 (100) Pulse Ox 98 O2 Delivery Room Air Capillary Refill : Less Than 3 Seconds Height, Weight, BMI Height: '" Weight: lbs. oz. kg; 24.62 BMI Method: General Appearance: No Apparent Distress, WD/WN Eyes: Bilateral Eye Normal Inspection, Bilateral Eye PERRL, Bilateral Eye EOMI HEENT: PERRL/EOMI; No Moist Mucous Membranes (dry mucous membranes) Neck: Full Range of Motion, Normal Inspection, Non Tender, Supple Respiratory: Chest Non Tender, Lungs Clear, Normal Breath Sounds, No Accessory Muscle Use, No Respiratory Distress Cardiovascular: Regular Rate, Rhythm, Normal Peripheral Pulses Gastrointestinal: Normal Bowel Sounds, No Pulsatile Mass, Non Tender, Soft Back: Normal Inspection, No CVA Tenderness, No Vertebral Tenderness Extremity: Normal Capillary Refill, Non Tender, No Calf Tenderness Neurologic/Psychiatric: Alert, Oriented x3, Normal 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 Continue to monitor Generalized weakness and loss of energy, probably secondary to DKA. Continue to monitor Hypertension, restart home medication monitor blood pressure History of aortic valve replacement done in November 2016. I will evaluate 2-D echocardiogram Family history of atherosclerosis. Clinical Quality Measures AMI/AHF: ASA po Prior to arrival: Yes (81MG AT 1000) DVT/VTE Risk/Contraindication: Risk Factor Score Per Nursin RFS Level Per Nursing on Admit: 2=Moderate YANELI HENDRICKS MD Oct 09, 2019 07:10 POS
[2019-10-09] MEDS: meTOprolol TARTRATE 25 MG (LOPRESSOR) TABLET PO SCH ×3 (08:52→21:29)
[2019-10-09] MEDS ORDERED: NS (IVPB) 250 ML ONE (09:00)
[2019-10-09] MEDS ORDERED: NS (IVPB) 250 ML IV ONE (09:15)
[2019-10-09] MEDS ORDERED: NS 100 ML (IVPB) BAG IV ONE (09:15)
[2019-10-09 09:27] LABS: BUN/CREATININE RATIO 18; CARBON DIOXIDE 15 MMOL/L (21-32); CHLORIDE 107 MMOL/L (98-107); CREATININE SERUM 0.79 MG/DL (0.60-1.30); GFR ESTIMATED > 60; GLUCOSE 305 MG/DL (70-105); MAGNESIUM 2.6 MG/DL (1.6-2.4); POTASSIUM 4.7 MMOL/L (3.6-5.0); SODIUM 130 MMOL/L (135-145)
[2019-10-09] MEDS ORDERED: NS (IVPB) 250 ML IV SCH (09:30)
--- NOTE | 2019-10-09 11:12 | History & Physical-Hospitalist ---
ALICIA FERRIS [facility] 10/09/19 1112: History of Present Illness HPI/Chief Complaint CC: DKA HPI: Pt presents with dizziness and not feeling well for the past couple months. She states she has been having increased thirst and frequent urination during this time as well. She reports a family history of diabetes, but when she had been checked a few months earlier before her symptoms she was borderline and told to just watch her diet. She has a history of aortic valve replacement in 2017 and she takes Metoprolol and baby Aspirin only as her home medications. She states she has been having trouble with SOB on exertion for years and hoped the valve replacement would improve these symptoms, but it has not changed them and she still gets SOB walking across the room at times. When evaluated in the [facility] her blood glucose was 547, and she was started on IV insulin. Her urine showed high ketones and glucose. Her serum ketone beta-hydroxybutyrate was elevated at 1.45. Source: patient Exam Limitations: no limitations Date Seen 10/09/19 Attending Physician Valentina Tomas Pankaj K MD Referring Physician Date of Admission Oct 08, 2019 at 22:54 Home Medications & Allergies Home Medications Reviewed patient Home Medication Reconciliation performed by pharmacy medication reconciliations motorcycle technician and/or nursing. Patients Allergies have been reviewed. Allergies Allergies Coded Allergies hydrocodone (Verified Allergy, Unknown, 10/08/19) oxycodone (Verified Allergy, Unknown, 10/08/19) Past Jvkmkrw-Vqmakp-Tdvzgj Hx Past Med/Social Hx: Reviewed Nursing Past Med/Soc Hx, Reviewed and Corrections made Patient Social History Marrital Status: Alcohol Use: Rarely Uses Recreational Drug Use: No Smoking Status: Never a Smoker 2nd Hand Smoke Exposure: No Recent Foreign Travel: No Contact w/other who traveled: No Recent Hopitalizations: No Recent Infectious Disease Expo: No Seasonal Allergies Seasonal Allergies: Yes Past Medical History Surgeries: Adenoidectomy, Appendectomy, Hysterectomy, Tonsillectomy, Valve Replacement (Aortic 2017) Cardiac: High Cholesterol, Hypertension, Valvular Heart Disease Genitourinary: UTI-Chronic Gastrointestinal: Gastroesophageal Reflux Musculoskeletal: Back Injury HEENT: Cataract Loss of Vision: Denies Hearing Impairment: Denies Psychosocial: Depression History of Blood Disorders: No Family History Diabetes (multiple family members with diabetes) Review of Systems Constitutional: No chills; dizziness (Improved); No fever, No weakness EENTM: No blurred vision, No double vision Respiratory: No cough; dyspnea on exertion; No short of breath Cardiovascular: No chest pain; Hx of Intervention; No palpitations Gastrointestinal: No abdominal pain, No constipation, No diarrhea, No nausea, No vomiting; other (Polydipsia ) Genitourinary: frequency Psychiatric/Neurological: Denies Headache; Numbness (Chronic lower extremity from prior back surgery); Denies Tingling Physical Exam Physical Exam Vital Signs Vital Signs - First Documented 10/08/19 10/08/19 10/09/19 20:00 20:02 00:50 Temp 37.1 Pulse 104 Resp 18 B/P (MAP) 144/79 (100) Pulse Ox 98 O2 Delivery Room Air Capillary Refill : Less Than 3 Seconds Height, Weight, BMI Height: '" Weight: lbs. oz. kg; 24.62 BMI Method: General Appearance: No Apparent Distress, WD/WN Respiratory: Chest Non Tender, Lungs Clear, Normal Breath Sounds, No Accessory Muscle Use, No Respiratory Distress Cardiovascular: Regular Rate, Rhythm, No JVD, Normal Peripheral Pulses, Systolic Murmur Extremity: Non Tender, No Calf Tenderness, No Pedal Edema Neurologic/Psychiatric: Alert, Oriented x3, Normal Mood/Affect, Sensory Deficit (Left lower extremity numbness from back surgery) Skin: Normal Color, Warm/Dry Results Results/Procedures Labs Laboratory Tests 10/08/19 20:35 10/09/19 01:50 10/09/19 04:01 10/09/19 09:04 Patient resulted labs reviewed. Assessment/Plan Assessment and Plan Assessment: DKA Hypokalemia Hypomagnesium Hx aortic valve replacement Plan: Monitor blood sugars with glucose checks (q1h) and Insulin sliding scale IV fluids Potassium replacement Magnesium replacement monitor blood pressure Clinical Quality Measures AMI/AHF: ASA po Prior to arrival: Yes (81MG AT 1000) DVT/VTE Risk/Contraindication: Risk Factor Score Per Nursin RFS Level Per Nursing on Admit: 2=Moderate VALENTINA TOMAS DO 10/09/191946: History of Present Illness HPI/Chief Complaint Chief complaint: New onset diabetes with DKA. HPI: This is a 69yoWF who has a strong family history of diabetes, who sees Dr. Yanes and close monitoring of border-line blood sugar who presented to the ER with severe weakness found to have blood sugar in the 600s and acidotic with bicarb of 13. She was deemed new onset diabetes with DKA. She was placed on insulin drip with aggressive IV fluid resuscitation and currently doing better but after she ate breakfast her blood sugar went up to 400 after improved at 165. We will have DM education see her and hopefully get discharge ready for tomorrow. Time Seen by a Provider: 09:00 Past Vdmdvzl-Hrlkhh-Qfkkpo Hx Past Med/Social Hx: Reviewed Nursing Past Med/Soc Hx, Reviewed and Corrections made Patient Social History Marrital Status: Review of Systems Constitutional: see HPI, weakness Physical Exam Physical Exam General Appearance: No Apparent Distress, WD/WN, Chronically ill Eyes: Right Eye Normal Inspection, Right Eye PERRL HEENT: PERRL/EOMI, Normal ENT Inspection, Pharynx Normal, Moist Mucous Membranes Neck: Full Range of Motion, Normal Inspection, Non Tender Respiratory: Chest Non Tender, Lungs Clear, Normal Breath Sounds, No Accessory Muscle Use, No Respiratory Distress Cardiovascular: Regular Rate, Rhythm, No Edema, No Gallop, No JVD, No Murmur, Normal Peripheral Pulses Gastrointestinal: Normal Bowel Sounds, No Organomegaly, No Pulsatile Mass, Non Tender, Soft Back: Normal Inspection, No CVA Tenderness, No Vertebral Tenderness Extremity: Normal Capillary Refill, Normal Inspection, Normal Range of Motion, Non Tender, No Calf Tenderness, No Pedal Edema Neurologic/Psychiatric: Alert, Oriented x3, No Motor/Sensory Deficits, Normal Mood/Affect Skin: Normal Color, Warm/Dry Lymphatic: No Adenopathy Assessment/Plan Admission Diagnosis Assessment: New onset DKA Plan: Insulin drip Admission Status: Inpatient Order (span 2 midnights) Reason for Inpatient Admission: DKA Diagnosis/Problems Diagnosis/Problems (1) Diabetes mellitus, new onset Status: Acute (2) Diabetic ketoacidosis without coma Status: Acute Qualifiers: Diabetes mellitus type: other specified (including MARCO A) Qualified Codes: E13.10 - Other specified diabetes mellitus with ketoacidosis without coma Supervisory-Addendum Brief Verification & Attestation Participated in pt care: history, MDM, physical Personally performed: exam, history, MDM, supervision of care Care discussed with: Medical Student Procedures: n/a Results interpretation: Verified all documentation Verification and Attestation of Medical Student E/M Service A medical student performed and documented this service in my presence. I reviewed and verified all information documented by the medical student and made modifications to such information, when appropriate. I personally performed the physical exam and medical decision making. Valentina Tomas, Oct 09, 2019,19:47 ALICIA FERRIS [facility] Oct 09, 2019 11:12 VALENTINA LOCKE DO Oct 09, 2019 19:47 POS
[2019-10-09] MEDS ORDERED: ASPI-983 PO (11:20)
[2019-10-09] MEDS ORDERED: METO-333 PO (11:20)
--- NOTE | 2019-10-09 11:22 | NUR ---
SPOKE WITH THE PATIENT ABOUT HER MEDICATIONS. SHE LISTED WHAT SHE IS TAKING. SHE TAKES ONE PRESCRIPTION MEDICATION THAT IS SHOWN ON THE EXT MED HX. SHE ALSO TAKES ASPIRIN 81MG DAILY OTC.
--- NOTE | 2019-10-09 11:50 | NUR ---
"RD ASSESSMENT PMHx: hypercholesterolemia; HTN; GERD; recent onset of DM PT INTERACTION: Pt was awake and pleasant during consult for dietary education. Pt states current appetite is good and has been this way for some time. Pt states following a regular diet at home, and currently has no issues with chewing/swallowing food. Pt states no recent issues with n/v/c/d at this time. Note no BM has been recorded and pt not currently on bowel regimen per chart review. Pt states recent intentional wt loss, but did not give an amount or timeframe of weight lost. Note unable to determine recent wt hx, per chart review. Note pt has recent onset of DM, and present admission for DKA per chart review. ABNORMAL NUTRITION-RELATED LAB VALUES: Na 130 (L); Ca 8.0 (L); glu 305 (H); Mg 2.6 (H) Est. kcal needs: [id number] kcal | 25-30 kcal/kg Est. Pro needs: 52-65 g Pro | 0.8-1.0 g Pro/kg PES STATEMENT: Food and nutrition-related knowledge deficit of (NB-1.1) related to lack of prior nutrition-related education as evidenced by recent diagnosis of DM | pt interview INTERVENTION: Continue with current diet order of CHO 60g/m 1 snack diet. Discussed and provided handout on CHO counting. Explained CHO counting and meal planning and management of DM through CHO counting. Answered questions about meals and items of food in relation to CHO amounts. Discussed smartphone applications and relationship to dining out and CHO counting/planning. Pt appeared confident to follow suggestions and recommendations. Will continue to follow and reassess as pt needs and status change. MONITOR/EVALUATE: PO Intake; Plan of Care; Hydration Status; Weight Status; Lab Values Yassine Rose, MS, RD, LD"
[2019-10-09 15:43] LABS: MAGNESIUM 2.2 MG/DL (1.6-2.4)
[2019-10-09] MEDS: ACETAMINOPHEN 325 MG TABLET PO PRN (15:43)
[2019-10-09 15:55] LABS: CALCIUM 8.5 MG/DL (8.5-10.1); CREATININE SERUM 0.95 MG/DL (0.60-1.30)
--- NOTE | 2019-10-09 19:29 | NUR ---
This RN updated Dr. Thomas on patient's 1900 blood sugar and afternoon lab results. New orders received at this time, see order hx.
[2019-10-09] MEDS ORDERED: inSUlin (REGULAR) HUMAN 1 UNIT/0.01 ML (CHARGE PER UNIT) SC NR (19:45)
[2019-10-09] MEDS: inSUlin ASPART (NovoLOG) 1 UNIT/0.01 ML (CHARGE PER UNIT) SC SCH ×3 (20:27→23:58)
[2019-10-09 20:57] LABS: CALCIUM 8.4 MG/DL (8.5-10.1); CREATININE SERUM 1.06 MG/DL (0.60-1.30); MAGNESIUM 2.2 MG/DL (1.6-2.4); PHOSPHORUS 2.6 MG/DL (2.3-4.7); POTASSIUM 4.6 MMOL/L (3.6-5.0)
[2019-10-09 21:34] LABS: BILIRUBIN,URINE NEGATIVE (NEGATIVE); CLARITY,URINE CLEAR; COLOR,URINE YELLOW; GLUCOSE, URINE (UA) 3+ (NEGATIVE); KETONES,URINE NEGATIVE (NEGATIVE); LEUKOCYTE ESTERASE ,URINE 1+ (NEGATIVE); NITRITE,URINE NEGATIVE (NEGATIVE); PH,URINE 5.5 (5-9); PROTEIN,URINE NEGATIVE (NEGATIVE)
[2019-10-09 21:51] LABS: BACTERIA,URINE LARGE /HPF; RBC,URINE 0-2 /HPF
[2019-10-09 22:55] LABS: BILIRUBIN,URINE NEGATIVE (NEGATIVE); CLARITY,URINE CLEAR; COLOR,URINE YELLOW; GLUCOSE, URINE (UA) 3+ (NEGATIVE); KETONES,URINE NEGATIVE (NEGATIVE); LEUKOCYTE ESTERASE ,URINE TRACE (NEGATIVE); NITRITE,URINE NEGATIVE (NEGATIVE); PH,URINE 5.5 (5-9); PROTEIN,URINE NEGATIVE (NEGATIVE)
[2019-10-09 23:38] LABS: BACTERIA,URINE TRACE /HPF; RBC,URINE 0-2 /HPF
[2019-10-10] VITALS: BP 112/54
[2019-10-10 01:00] VITALS: BP 111/61
--- NOTE | 2019-10-10 01:02 | NUR ---
RECEIVED REPORT FROM MARY LOU AKINS.
[2019-10-10] MEDS: inSUlin ASPART (NovoLOG) 1 UNIT/0.01 ML (CHARGE PER UNIT) SC SCH ×3 (01:55→09:20)
[2019-10-10 02:06] VITALS: BP 113/69
--- NOTE | 2019-10-10 02:06 | NUR ---
SUNIL MARSHALL transferred to room 410-1. SUNIL MARSHALL introduced to surroundings, call light, bed controls, phone, TV, temperature control, lights, meal times, smoking policy, visitor policy, side rail policy, bathrooms and showers.
[2019-10-10] MEDS: ACETAMINOPHEN 325 MG TABLET PO PRN (02:12)
[2019-10-10] MEDS ORDERED: inSUlin ASPART (NovoLOG) 1 UNIT/0.01 ML (CHARGE PER UNIT) SC SCH ×2 (04:00)
[2019-10-10 04:59] VITALS: BP 94/64
[2019-10-10 05:15] LABS: BASOPHILS # (AUTO) 0.1 10^3/uL (0.0-0.1); BASOPHILS % (AUTO) 1 % (0-10); EOSINOPHILS # (AUTO) 0.2 10^3/uL (0.0-0.3); EOSINOPHILS % (AUTO) 3 % (0-10); HEMATOCRIT 34 % (35-52); HEMOGLOBIN 11.3 G/DL (11.5-16.0); LYMPHOCYTES # (AUTO) 1.1 X 10^3 (1.0-4.0); LYMPHOCYTES % (AUTO) 22 % (12-44); MEAN CORPUSCULAR HEMOGLOBIN 29 PG (25-34); MEAN CORPUSCULAR HGB CONC 34 G/DL (32-36); MEAN CORPUSCULAR VOLUME 85 FL (80-99); MEAN PLATELET VOLUME 12.1 FL (7.4-10.4); MONOCYTES # (AUTO) 0.8 X 10^3 (0.0-1.0); MONOCYTES % (AUTO) 15 % (0-12); NEUTROPHILS % (AUTO) 59 % (42-75); PLATELET COUNT 221 10^3/uL (130-400); RED CELL DISTRIBUTION WIDTH 13.4 % (10.0-14.5); WHITE BLOOD COUNT 5.1 10^3/uL (4.3-11.0)
[2019-10-10 05:46] LABS: BUN/CREATININE RATIO 16; CALCIUM 8.3 MG/DL (8.5-10.1); CARBON DIOXIDE 16 MMOL/L (21-32); CHLORIDE 115 MMOL/L (98-107); CREATININE SERUM 0.75 MG/DL (0.60-1.30); GFR ESTIMATED > 60; GLUCOSE 90 MG/DL (70-105); MAGNESIUM 2.4 MG/DL (1.6-2.4); PHOSPHORUS 3.2 MG/DL (2.3-4.7); POTASSIUM 3.8 MMOL/L (3.6-5.0); SODIUM 139 MMOL/L (135-145)
[2019-10-10] MEDS ORDERED: ENOXAPARIN 40 MG/0.4 ML (LOVENOX) SYR SC SCH (07:00)
[2019-10-10 08:00] VITALS: BP 126/72
[2019-10-10] MEDS: meTOprolol TARTRATE 25 MG (LOPRESSOR) TABLET PO SCH (08:21)
--- NOTE | 2019-10-10 08:44 | Cardiology Progress Note ---
Subjective Date Seen by Provider: Oct 10, 2019 Time Seen by Provider: 08:41 Subjective/Events-last exam Patient is sitting up in bed, no new complaints. Reports dyspnea with exertion. Denies any chest pain Focused Exam Lactate Level 10/09/19 05:00: Lactic Acid Level 0.77 Objective-Cardiology Exam Last Set of Vital Signs Vital Signs 10/10/19 10/10/19 04:59 06:53 Temp 36.4 Pulse 72 Resp 18 B/P (MAP) 94/64 (74) Pulse Ox 98 O2 Delivery Room Air Capillary Refill : Less Than 3 Seconds I&O Intake and Output 10/10/19 00:00 Intake Total 4365 ml Output Total 4325 ml Balance 40 ml Intake Oral 1490 ml IV Total 2875 ml Output Urine Total 4325 ml General: Alert, Oriented X3, Cooperative HEENT: Atraumatic, PERRLA Neck: Supple, No JVD, No Thyromegaly Lungs: Clear to Auscultation, Normal Air Movement Heart: Regular Rate, Normal S1, Normal S2, Other ( murmur) Abdomen: Normal Bowel Sounds, Soft Extremities: No Edema, Normal Pulses Skin: No Rashes, No Significant Lesion Neuro: Normal Gait, Cranial Nerves 3-12 NL Psych/Mental Status: Mental Status NL, Mood NL Results Lab Laboratory Tests 10/09/19 09:04 10/09/19 15:15 10/09/19 20:00 10/10/19 04:15 A/P-Cardiology Admission Diagnosis Diabetic ketoacidosis Hypertension Aortic valve replacement Family history of atherosclerosis Assessment/Plan Diabetic ketoacidosis, new-onset diabetes, better at this time, receiving IV fluid. Continue to monitor Generalized weakness and loss of energy, probably secondary to DKA. Continue to monitor Hypertension, controlled, continue to monitor. History of aortic valve replacement done in November 2016. 2-D echocardiogram done yesterday revealed EF 55-65%, grade I diastolic dysfunction, moderate to se james with peak gradient 67mmHg, mean gradient 33mmHg, calculated valve area 1.0 cm sq. HTP with PA 40-45mmHg Family history of atherosclerosis. Clinical Quality Measures AMI/AHF: ASA po Prior to arrival: Yes (81MG AT 1000) DVT/VTE Risk/Contraindication: Risk Factor Score Per Nursin RFS Level Per Nursing on Admit: 2=Moderate JOSEFINA LOCO 20, 2019 08:44 POS
--- NOTE | 2019-10-10 09:03 | Pulmonary Progress Note ---
TOBIN MAURICE A MEDICAL STUDENT 10/10/19 0903: Subjective Date Seen by a Provider: Oct 10, 2019 Time Seen by a Provider: 08:57 Subjective/Events-last exam Pt states that she feels better today and wants to go home. pt denies any chest pain or new SOB. Sepsis Event Evaluation Height, Weight, BMI Height: '" Weight: lbs. oz. kg; 24.62 BMI Method: Focused Exam Lactate Level 10/09/19 05:00: Lactic Acid Level 0.77 Exam Exam Vital Signs Date Time Temp Pulse Resp B/P (MAP) Pulse Ox O2 Delivery O2 Flow Rate FiO2 10/10/19 08:00 36.6 75 18 126/72 (90) 98 Room Air 10/10/19 06:53 72 10/10/19 04:59 36.4 76 18 94/64 (74) 98 Room Air 10/10/19 02:06 36.5 71 16 113/69 (84) 97 Room Air 10/10/19 01:00 67 16 111/61 (78) 97 Room Air 10/10/19 00:51 72 10/10/19 00:00 Room Air 10/10/19 00:00 36.4 71 16 112/54 (73) 94 Room Air 10/09/19 23:00 80 16 108/49 (68) 97 Room Air 10/09/19 22:00 80 16 153/79 (103) 98 Room Air 10/09/19 21:00 84 22 131/63 (85) 99 Room Air 10/09/19 20:00 81 16 98/58 (71) 99 Room Air 10/09/19 20:00 95 Room Air 10/09/19 20:00 37.0 10/09/19 19:00 79 10/09/19 19:00 81 10/09/19 18:00 75 16 90/46 (61) 100 Room Air 10/09/19 17:00 85 17 114/91 (99) 98 Room Air 10/09/19 16:00 83 21 103/56 (72) 98 Room Air 10/09/19 16:00 97 Room Air 10/09/19 15:48 36.9 10/09/19 15:00 80 20 107/54 (71) 98 Room Air 10/09/19 14:00 84 17 115/56 (75) 97 Room Air 10/09/19 13:00 79 10/09/19 13:00 79 19 112/53 (72) 100 Room Air 10/09/19 12:00 95 Room Air 10/09/19 12:00 83 17 119/92 (101) 98 Room Air 10/09/19 11:42 36.7 10/09/19 11:00 78 15 100/55 (70) 95 Room Air 10/09/19 10:00 93 18 107/82 (90) 97 Room Air 10/09/19 09:00 85 15 127/73 (91) 97 Room Air I & O 10/10/19 07:00 Intake Total 2315 ml Output Total 5150 ml Balance -2835 ml Height & Weight Height: '" Weight: lbs. oz. kg; 24.62 BMI Method: General Appearance: No Apparent Distress, WD/WN HEENT: PERRL/EOMI, Normal ENT Inspection, Pharynx Normal, Moist Mucous Membranes Neck: Full Range of Motion, Normal Inspection, Non Tender Respiratory: Chest Non Tender, Lungs Clear, Normal Breath Sounds, No Accessory Muscle Use, No Respiratory Distress Cardiovascular: Regular Rate, Rhythm, No Edema, No Gallop, No JVD, No Murmur, Normal Peripheral Pulses Capillary Refill: Less Than 3 Seconds Extremity: Normal Capillary Refill, Normal Inspection, Normal Range of Motion, Non Tender, No Calf Tenderness, No Pedal Edema Neurologic/Psychiatric: Alert, Oriented x3, No Motor/Sensory Deficits, Normal Mood/Affect Skin: Normal Color, Warm/Dry Lymphatic: No Adenopathy Results Lab Laboratory Tests 10/08/19 20:35 10/09/19 01:50 10/09/19 04:01 10/09/19 09:04 10/09/19 15:15 10/09/19 20:00 10/10/19 04:15 Assessment/Plan Assessment/Plan DKA - improved -Pt on insulin gtt, bicarb still low at 16 but gap is closed at 8. -transition to oral medication/insulin Hypokalemia, hypophos - improved -will continue to monitor Hx of Aortic valve replacement per PT -She is not on anticoagulation at home -appreciate cardiology reccs. History of HTN History of HLD SURESH GOMEZ DO 10/10/19 1038: Subjective Time Seen by a Provider: 10:35 Subjective/Events-last exam Pt feels better and wants to go home. Exam Exam General Appearance: No Apparent Distress, WD/WN HEENT: PERRL/EOMI, Normal ENT Inspection, Pharynx Normal, Moist Mucous Membranes Neck: Full Range of Motion, Non Tender Respiratory: Chest Non Tender, Lungs Clear, Normal Breath Sounds, No Accessory Muscle Use, No Respiratory Distress Cardiovascular: Regular Rate, Rhythm, No Edema, No Gallop, No JVD, No Murmur, Normal Peripheral Pulses Extremity: Normal Capillary Refill, Normal Range of Motion, Non Tender, No Calf Tenderness, No Pedal Edema Neurologic/Psychiatric: Alert, Oriented x3, No Motor/Sensory Deficits, Normal Mood/Affect Skin: Normal Color, Warm/Dry Lymphatic: No Adenopathy Assessment/Plan Assessment/Plan DKA - Resolved -Pt on insulin gtt, bicarb still low at 16 but gap is closed at 8. -transition to oral medication/insulin Hypokalemia, hypophos - improved -will continue to monitor Hx of Aortic valve replacement per PT -She is not on anticoagulation at home -appreciate cardiology reccs. History of HTN History of HLD TOBIN MAURICE MEDICAL STUDENT Oct 10, 2019 09:03 SURESH TANG DO Oct 10, 2019 10:38 POS
[2019-10-10] MEDS ORDERED: LANC-659 MC (10:07)
[2019-10-10] MEDS ORDERED: BLOO-1483 MC (10:07)
[2019-10-10] MEDS ORDERED: BLOO-1609 MC (10:07)
[2019-10-10] MEDS ORDERED: INSU100I29 SQ (10:07)
[2019-10-10] MEDS ORDERED: INSU100I14 SQ (10:07)
--- NOTE | 2019-10-10 12:02 | Physical Therapy Evaluation ---
PT Evaluation-General Medical Diagnosis Admission Date Oct 08, 2019 at 22:54 Medical Diagnosis: diabetic ketoacidosis Onset Date: Oct 08, 2019 Therapy Diagnosis Therapy Diagnosis: impaired balance, SOB Precautions Precautions/Isolations: Fall Prevention, Standard Precautions Referral Physician: Dayanara Reason for Referral: Evaluation/Treatment, Strengthening Medical History Additional Medical History Past Medical History Surgeries: Adenoidectomy, Appendectomy, Hysterectomy, Tonsillectomy, Valve R eplacement (2016) Cardiac: High Cholesterol, Hypertension, Valvular Heart Disease Genitourinary: UTI-Chronic Gastrointestinal: Gastroesophageal Reflux Musculoskeletal: Back Injury HEENT: Cataract Loss of Vision: Denies Hearing Impairment: Denies Psychosocial: Depression History of Blood Disorders: No Reviewed History: Yes Social History Home: Single Level Current Living Status: Alone Entry Into Home: Ramp Prior Prior Level of Function SCALE: Activities may be completed with or without assistive devices. 6-Azuvhujujk-ekwpnix completes the activity by him/herself with no assistance from a helper. 5-Set-up or Clean-up Assistance-helper sets up or cleans up; patient completes activity. Henderson assists only prior to or following the activity. 4-Supervision or Touching Assistance-helper provides verbal cues and/or touching/steadying and/or contact guard assistance as patient completes activity. Assistance may be provided throughout the activity or intermittently. 3-Partial/Moderate Assistance-helper does LESS THAN HALF the effort. Henderson lifts, holds or supports trunk or limbs, but provides less than half the effort. 2-Substantial/Maximal Assistance-helper does MORE THAN HALF the effort. Henderson lifts or holds trunk or limbs and provides more than half the effort. 9-Vprzabrdq-gefldz does ALL the effort. Patient does none of the effort to complete the activity. Or, the assistance of 2 or more helpers is required for the patient to complete the activity. If activity was not attempted, code reason: 7-Patient Refused. 9-Not Applicable-not attempted and the patient did not perform the activity before the current illness, exacerbation or injury. 10-Not Attempted due to Environmental Limitations-(lack of equipment, weather restraints, etc.). 88-Not Attempted due to Medical Conditions or Safety Concerns. Bed Mobility: 6 Transfers (B,C,W/C): 6 Gait: 6 Stairs: 6 Wheelchair Mobility: 6 Indoor Mobility (Ambulation): Independent Stairs: Independent PT Evaluation-Current Subjective pt sitting EOB pre-tx agrees to therapy denies any pain. Pt sitting in recliner post-tx with call light, room phone, tray table, and all needs met at this time. Objective Patient Orientation: Person, Place, Time, Situation ROM/Strength ROM Lower Extremities LLE dorsiflexion is slightly limited compared to R. Strength Lower Extremities WFL Integumentary/Posture Integumentary see nursing notes Bowel Incontinence: No Bladder Incontinence: No Sensory Vision: Functional Hearing: Functional Sensation Right Lower Extremit: Impaired Sensation Left Lower Extremity: Impaired Sensation Lower Extremities B/L lateral border of feet have decreased sensation pt reports has been there since a back surgery 10 years ago. Transfers Roll Left to Right (QC): 9 Sit to Lying (QC): 9 Lying to Sitting/Side of Bed(Q: 9 Sit to Stand (QC): 6 Chair/Ozp-kn-Wgqml Xfer(QC): 6 Car Transfer (QC): 9 Gait Does the Patient Walk?: Yes Mode of Locomotion: Walk Anticipated Mode of Locomotion: Walk Walk 10 feet (QC): 5 Walk 50 ft with 2 Turns(QC): 5 Walk 150 ft (QC): 5 Walking 10ft/uneven surface-QC: 9 Distance: 600' Gait Assistive Device: None Wheelchair Training Does the Pt Use a Wheelchair?: No Wheel 50 ft with 2 turns (QC): 9 Wheel 150 ft (QC): 9 Type of Wheelchair: Manual Stairs 1 Step (curb) (QC): 9 4 Steps (QC): 9 12 Steps (QC): 9 Balance Sitting Static: Normal Sitting Dynamic: Normal Standing Static: Normal Standing Dynamic: Good Picking up an Object (QC): 9 Treatment pt performed transfer training, bed mobility training, skilled ambulation training, and education. Assessment/Needs pt able to ambulate with set up assist only. pt reports she only has slight imbalance when she get out away from her body with reaching. Pt reports imbalance from her not being able to feel her L foot. Pt dorsiflexion is restricted in the L foot and pt demonstrates a L hip [place] gait however pt is stable with no LOB this session. Pt distance is limited by SOB rated 5/10 Rehab Potential: Good PT Medical Scientific Liaison Goals Alf Goals PT Alf Goals Time Frame: Oct 17, 2019 Roll Left & Right (QC): 6 Sit to Lying (QC): 6 Lying-Sitting on Side/Bed(QC): 6 Sit to Stand (QC): 6 Chair/Bvc-ik-Qhxmc Xfer(QC): 6 Toilet Transfer (QC): 6 Car Transfer (QC): 9 Does the Patient Walk: Yes Walk 10 feet (QC): 6 Walk 50ft with 2 Turns (QC): 6 Walk 150 ft (QC): 6 Walking 10ft on Uneven Surface: 9 1 Step (curb) (QC): 6 4 Steps (QC): 6 12 Steps (QC): 9 Picking up an Object (QC): 9 Does the Pt use WC or Scooter?: No Type: Manual Type: Manual PT Plan Problem List Problem List: Activity Tolerance, Functional Strength, Safety, Balance, Gait Treatment/Plan Treatment Plan: Continue Plan of Care Treatment Plan: Education, Functional Activity Loc, Functional Strength, Gait, Safety, Therapeutic Exercise Treatment Duration: Oct 17, 2019 Frequency: 6 times per week Estimated Hrs Per Day: .25 hour per day Patient and/or Family Agrees t: Yes Safety Risks/Education Patient Education: Gait Training, Transfer Techniques, Correct Positioning, Safety Issues Teaching Recipient: Patient Teaching Methods: Demonstration, Discussion Response to Teaching: Return Demonstration, Reinforcement Needed Discharge Recommendations Plan pt will perform functional LE strengthening, skilled ambulation training, and education. Time/GCodes Time In: 1128 Time Out: 1141 Total Billed Treatment Time: 13 Total Billed Treatment 1 visit FACUNDO BELL PT Oct 10, 2019 12:02 POS
--- NOTE | 2019-10-10 13:09 | Discharge Summary ---
ALICIA FERRIS [facility] 10/10/19 1309: Diagnosis/Chief Complaint Date of Admission Oct 08, 2019 at 22:54 Date of Discharge Discharge Date: Oct 10, 2019 Admission Diagnosis Assessment: New onset DKA Plan: Insulin drip Primary Care Elliott Yanes MD Discharge Diagnosis (1) Diabetes mellitus, new onset Status: Acute (2) Diabetic ketoacidosis without coma Status: Acute Discharge Summary Discharge Physical Exam Allergies: Coded Allergies: hydrocodone (Verified Allergy, Unknown, 10/08/19) lisinopril (Verified Allergy, Unknown, 10/09/19) oxycodone (Verified Allergy, Unknown, 10/08/19) Uncoded Allergies: statins (Allergy, Unknown, 10/09/19) Vitals & I&Os Vital Signs Date Time Temp Pulse Resp B/P (MAP) Pulse Ox O2 Delivery O2 Flow Rate FiO2 10/10/19 08:00 36.6 75 18 126/72 (90) 98 Room Air General Appearance: No Apparent Distress, WD/WN Respiratory: Chest Non Tender, Lungs Clear, Normal Breath Sounds, No Accessory Muscle Use, No Respiratory Distress Cardiovascular: Regular Rate, Rhythm, No Edema, No Gallop, No Murmur, Normal Peripheral Pulses Extremity: Non Tender, No Calf Tenderness, No Pedal Edema Skin: Normal Color, Warm/Dry Neurologic/Psychiatric: Alert, Oriented x3, No Motor/Sensory Deficits, Normal Mood/Affect Hospital Course Pt was admitted from [facility] to ICU with DKA after presenting with dizziness, polyuria and polydipsia for the past week. She had reported feeling weird for the past couple months and had not been in to see her PCP for a few months. She had a family history of diabetes but reported only being borderline prior to this admission. She was treated with IV insulin, fluids and Potassium. She recovered after one day of treatment and was reporting feeling normal. She was started on long acting insulin Levemir, NovoLog with meals, given diabetic education, glucometer order, and discharged with follow up the following day with her PCP at [facility]. Labs (last 24 hrs) Laboratory Tests 10/09/19 13:32: Glucometer 323H 10/09/19 14:35: Glucometer 258H 10/09/19 15:15: Sodium Level 132L, Potassium Level 5.0, Chloride Level 108H, Carbon Dioxide Level 15L, Anion Gap 9, Blood Urea Nitrogen 14, Creatinine 0.95, Estimat Glomerular Filtration Rate 58, BUN/Creatinine Ratio 15, Glucose Level 194H, Calcium Level 8.5, Phosphorus Level 3.0, Magnesium Level 2.2 10/09/19 15:38: Glucometer 158H 10/09/19 16:33: Glucometer 148H 10/09/19 18:08: Glucometer 246H 10/09/19 18:58: Glucometer 299H 10/09/19 20:00: Sodium Level 131L, Potassium Level 4.6, Chloride Level 105, Carbon Dioxide Level 16L, Anion Gap 10, Blood Urea Nitrogen 15, Creatinine 1.06, Estimat Glomerular Filtration Rate 51, BUN/Creatinine Ratio 14, Glucose Level 298H, Calcium Level 8.4L, Phosphorus Level 2.6, Magnesium Level 2.2, Beta-Hydroxybutyrate (Chem panel) 0.18 10/09/19 21:26: Urine Color YELLOW, Urine Clarity CLEAR, Urine pH 5.5, Urine Specific [place] 1.010L, Urine Protein NEGATIVE, Urine Glucose (UA) 3+H, Urine Ketones NEGATIVE, Urine Nitrite NEGATIVE, Urine Bilirubin NEGATIVE, Urine Urobilinogen 0.2, Urine Leukocyte Esterase 1+H, Urine RBC (Auto) TRACE-I, Urine RBC 0-2, Urine WBC 10- 25H, Urine Squamous Epithelial Cells 2-5, Urine Crystals NONE, Urine Bacteria LARGEH, Urine Casts NONE, Urine Mucus NEGATIVE, Urine Culture Indicated YES 10/09/19 22:45: Urine Color YELLOW, Urine Clarity CLEAR, Urine pH 5.5, Urine Specific [place] <=1.005, Urine Protein NEGATIVE, Urine Glucose (UA) 3+H, Urine Ketones NEGATIVE, Urine Nitrite NEGATIVE, Urine Bilirubin NEGATIVE, Urine Urobilinogen 0.2, Urine Leukocyte Esterase TRACE, Urine RBC (Auto) TRACE-I, Urine RBC 0-2, Urine WBC 2- 5, Urine Crystals NONE, Urine Bacteria TRACE, Urine Casts NONE, Urine Mucus NEGATIVE, Urine Culture Indicated NO 10/09/19 22:47: Glucometer 262H 10/10/19 01:47: Glucometer 108 10/10/19 04:15: White Blood Count 5.1, Red Blood Count 3.95L, Hemoglobin 11.3L, Hematocrit 34L, Mean Corpuscular Volume 85, Mean Corpuscular Hemoglobin 29, Mean Corpuscular Hemoglobin Concent 34, Red Cell Distribution Width 13.4, Platelet Count 221, Mean Platelet Volume 12.1H, Neutrophils (%) (Auto) 59, Lymphocytes (%) (Auto) 22, Monocytes (%) (Auto) 15H, Eosinophils (%) (Auto) 3, Basophils (%) (Auto) 1, Neutrophils # (Auto) 3.0, Lymphocytes # (Auto) 1.1, Monocytes # (Auto) 0.8, Eosinophils # (Auto) 0.2, Basophils # (Auto) 0.1, Sodium Level 139, Potassium Level 3.8, Chloride Level 115#H, Carbon Dioxide Level 16L, Anion Gap 8, Blood Urea Nitrogen 12, Creatinine 0.75, Estimat Glomerular Filtration Rate > 60, BUN/Creatinine Ratio 16, Glucose Level 90, Calcium Level 8.3L, Phosphorus Level 3.2, Magnesium Level 2.4, Beta-Hydroxybutyrate (Chem panel) 0.17 10/10/19 08:01: Glucometer 164H Patient resulted labs reviewed. Pending Labs Laboratory Tests 10/10/19 08:01: Glucometer 164 Discharge Home Medications: Active Scripts Active Advocate Lancets (Lancets) 1 Each Each Each [facility] Caretouch Glucose Monitoring (Blood-Glucose Meter) 1 Each Kit Each [facility] Blood Glucose Monitoring (Blood-Glucose Meter) 1 Each Each Each [facility] Novolog Flexpen (Insulin Aspart) 300 Units/3 Ml Solution 10 Units SQ AC Levemir Flextouch (Insulin Detemir) 100 Unit/1 Ml Insuln.pen 15 Unit SQ HS Reported Aspirin EC (Aspirin) 81 Mg Tablet. 81 Mg PO DAILY Metoprolol Tartrate 25 Mg Tablet 25 Mg PO BID Instructions to patient/family Please see electronic discharge instructions given to patient. Clinical Quality Measures AMI/AHF: ASA po Prior to arrival: Yes (81MG AT 1000) DVT/VTE Risk/Contraindication: Risk Factor Score Per Nursin RFS Level Per Nursing on Admit: 2=Moderate VALENTINA TOMAS DO 10/10/192115: Discharge Summary Discharge Physical Exam Allergies: Coded Allergies: hydrocodone (Verified Allergy, Unknown, 10/08/19) lisinopril (Verified Allergy, Unknown, 10/09/19) oxycodone (Verified Allergy, Unknown, 10/08/19) Uncoded Allergies: statins (Allergy, Unknown, 10/09/19) General Appearance: No Apparent Distress, WD/WN Respiratory: Lungs Clear Neurologic/Psychiatric: Alert, Oriented x3, No Motor/Sensory Deficits, Normal Mood/Affect Hospital Course Was the Problem List Reviewed?: Yes Hospital Course: Pt had an uneventful hospital course when she was admitted for new onset DM with acidosis requiring insulin drip. HgbA1c later came back at 13.7. Pt tolerated insulin drip well and she reluctantly agreed for insulin administration to prepare for DC. She will have close follow up tomorrow with Dr. Yanes her family doctor and was continued on all of her regular home meds. Her Bicarb remained at 16 and likely has a component of renal tubular acidosis. Discussion & Recommendations Discharge Planning: <30 minutes discharge planning Supervisory-Addendum Brief Verification & Attestation Participated in pt care: history, MDM, physical Personally performed: exam, history, MDM, supervision of care Care discussed with: Medical Student Procedures: n/a Results interpretation: Verified all documentation Verification and Attestation of Medical Student E/M Service A medical student performed and documented this service in my presence. I reviewed and verified all information documented by the medical student and made modifications to such information, when appropriate. I personally performed the physical exam and medical decision making. Valentina Tomas, Oct 10, 2019,21:16 Problem Qualifiers (1) Diabetic ketoacidosis without coma: Diabetes mellitus type: other specified (including MARCO A) Qualified Codes: E13.10 - Other specified diabetes mellitus with ketoacidosis without coma ALICIA FERRIS Oct 10, 2019 13:09 VALENTINA LOCKE DO Oct 10, 2019 21:16 POS
[2019-10-10 14:16] VITALS: BP 126/72
== END 2019-10-10 13:50 | disposition home or self-care (01) | DRG 639 ==
LOC: ER FS 19:55 → ICU 22:54 → 4TH 10-10 01:47
PROVIDERS: ADMIT Internal Medicine; ATTEND Internal Medicine
DX: E11.10 Type 2 diabetes mellitus with ketoacidosis without coma (principal); I10 Essential (primary) hypertension; E87.6 Hypokalemia; E78.00 Pure hypercholesterolemia, unspecified; K21.9 Gastro-esophageal reflux disease without esophagitis; F32.9 Major depressive disorder, single episode, unspecified; J30.2 Other seasonal allergic rhinitis; R20.2 Paresthesia of skin; Z95.2 Presence of prosthetic heart valve; Z82.49 Family history of ischemic heart disease and other diseases of the circulatory system; N25.89 Other disorders resulting from impaired renal tubular function
CPT/HCPCS: 36415; 71046; 80048; 80053; 81000; 82010; 82803; 82962; 83036; 83605; 83735; 83880; 84100; 84484; 85025; 85027; 85610; 85730; 87077; 87081; 87088; 87186; 93005; 93041; 93306; 96361; 96374

== ENCOUNTER 2023-01-26 15:40 | Emergency (ER) | payer MEDICARE ==
[~2023-01-26] VITALS: Ht 162.5 cm; Wt 60.5 kg
[~2023-01-26 15:40] MED LIST: ASPI-1238 PO; BLOO-1483 MC; BLOO-1609 MC; INSU100I14 SQ; INSU100I29 SQ; LANC-659 MC; METO-333 PO
[2023-01-26 15:45] VITALS: BP 180/84
[2023-01-26] MEDS ORDERED: ASPIRIN 81 MG CHEW (CHILDREN'S ASA) PO ONE (16:00)
--- NOTE | 2023-01-26 16:01 | ED General ---
General Stated Complaint: PAIN IN SHOULDER BLADE,CHEST, ARM, GETTING WORSE Source of Information: Patient Exam Limitations: No Limitations History of Present Illness Date Seen by Provider: Jan 26, 2023 Time Seen by Provider: 15:43 Initial Comments 72-year-old female with history of aortic valve replacement with tissue valve presents to the emergency department today for left arm pain and pain across her left back. She states symptoms started on has pain in her left arm. T his was described as a raw sensation from her wrist to her elbow. It persisted until today and that pain has subsided however she now has similar pain in her left scapular region. She denies any chest pain, shortness of breath. No fever chills or cough. No abdominal pain. No changes in bowel or bladder habits. She has not noticed any skin rashes. She tried some naproxen prior to arrival which did not seem to help. All other systems reviewed and negative except documented per HPI. Voice recognition software was used to help create this chart Allergies and Home Medications Allergies Coded Allergies: hydrocodone (Verified Allergy, Unknown, 10/08/19) lisinopril (Verified Allergy, Unknown, 10/09/19) oxycodone (Verified Allergy, Unknown, 10/08/19) Uncoded Allergies: statins (Allergy, Unknown, 10/09/19) Patient Home Medication List Home Medication List Reviewed: Yes Aspirin (Aspirin EC) 81 Mg Tablet.dr, 81 MG PO DAILY, (Reported) Entered as Reported by: FORREST NAVA on 10/09/19 1120 Blood-Glucose Meter (Blood Glucose Monitoring) 1 Each Each, EACH ACHS, (DME) Prescribed by: JIMENA TOMAS on 10/10/19 1007 Blood-Glucose Meter (Caretouch Glucose Monitoring) 1 Each Kit, EACH ACHS, (DME) Prescribed by: JIMENA TOMAS on 10/10/19 1007 Insulin Aspart (Novolog Flexpen) 300 Units/3 Ml Solution, 10 UNITS SQ AC Prescribed by: JIMENA TOMAS on 10/10/19 1007 Insulin Detemir (Levemir Flextouch) 100 Unit/1 Ml Insuln.pen, 15 UNIT SQ HS Prescribed by: JIMENA TOMAS on 10/10/19 1007 Lancets (Advocate Lancets) 1 Each Each, EACH ACHS, (DME) Prescribed by: JIMENA TOMAS on 10/10/19 1007 Metoprolol Tartrate (Metoprolol Tartrate) 25 Mg Tablet, 25 MG PO BID, (Reported) Entered as Reported by: FORREST NAVA on 10/09/19 1120 Review of Systems Review of Systems Constitutional: no symptoms reported Past Koegnon-Wzcior-Zfzbpu Hx Patient Social History Tobacco Use?: No Use of E-Cig and/or Vaping dev: No Substance use?: No Alcohol Use?: No Seasonal Allergies Seasonal Allergies: Yes Past Medical History Surgeries: Yes (EXPLORATORY SURGERY ON OVERIES, BACK SURGERY, VAGINAL PROLAPSE, AORTIC VALV) Adenoidectomy, Appendectomy, Hysterectomy, Tonsillectomy, Valve Replacement Respiratory: No Cardiac: Yes High Cholesterol, Hypertension, Valvular Heart Disease Neurological: No Genitourinary: Yes UTI-Chronic Gastrointestinal: Yes Gastroesophageal Reflux Musculoskeletal: Yes Back Injury Endocrine: No HEENT: Yes Cataract Loss of Vision: Denies Hearing Impairment: Denies Cancer: No Psychosocial: Yes Depression Integumentary: No Blood Disorders: No Family Medical History Reviewed Nursing Family Hx No Pertinent Family Hx, Diabetes Physical Exam Vital Signs Vital Signs - First Documented 01/26/23 15:45 Temp 36.2 Pulse 101 Resp 18 B/P (MAP) 180/84 (116) Pulse Ox 100 O2 Delivery Room Air Capillary Refill : Height, Weight, BMI Height: '" Weight: lbs. oz. kg; 24.62 BMI Method: General Appearance: No Apparent Distress, WD/WN HEENT: Normal ENT Inspection, Pharynx Normal Neck: Full Range of Motion, Normal Inspection, Non Tender Respiratory: Chest Non Tender, Lungs Clear, Normal Breath Sounds, No Accessory Muscle Use, No Respiratory Distress Cardiovascular: Regular Rate, Rhythm, Normal Peripheral Pulses, Systolic Murmur (Right sternal border) Gastrointestinal: Normal Bowel Sounds, No Organomegaly, No Pulsatile Mass, Non Tender, Soft Back: No Vertebral Tenderness Extremity: Normal Capillary Refill, Normal Range of Motion, Non Tender, No Calf Tenderness Skin: Warm/Dry, Rash (There is a faint vesicular type rash in the C6 dermatome) Progress/Results/Core Measures Suspected Sepsis SIRS Temperature: Pulse: Respiratory Rate: Laboratory Tests 01/26/23 16:15: White Blood Count 8.0 Blood Pressure / Mean: Laboratory Tests 01/26/23 16:15: Creatinine 0.85, Platelet Count 268, Total Bilirubin 0.2 Results/Orders Lab Results Laboratory Tests Test 01/26/23 16:15 Range/Units White Blood Count 8.0 4.3-11.0 10^3/uL Red Blood Count 4.65 3.80-5.11 10^6/uL Hemoglobin 12.9 11.5-16.0 g/dL Hematocrit 39 35-52 % Mean Corpuscular Volume 83 80-99 fL Mean Corpuscular Hemoglobin 28 25-34 pg Mean Corpuscular Hemoglobin Concent 33 32-36 g/dL Red Cell Distribution Width 13.0 10.0-14.5 % Platelet Count 268 130-400 10^3/uL Mean Platelet Volume 10.3 9.0-12.2 fL Immature Granulocyte % (Auto) 0 % Neutrophils (%) (Auto) 60 42-75 % Lymphocytes (%) (Auto) 23 12-44 % Monocytes (%) (Auto) 11 0-12 % Eosinophils (%) (Auto) 4 0-10 % Basophils (%) (Auto) 2 0-10 % Neutrophils # (Auto) 4.8 1.8-7.8 10^3/uL Lymphocytes # (Auto) 1.8 1.0-4.0 10^3/uL Monocytes # (Auto) 0.9 0.0-1.0 10^3/uL Eosinophils # (Auto) 0.3 0.0-0.3 10^3/uL Basophils # (Auto) 0.1 0.0-0.1 10^3/uL Immature Granulocyte # (Auto) 0.0 0.0-0.1 10^3/uL Sodium Level 140 135-145 MMOL/L Potassium Level 4.6 3.6-5.0 MMOL/L Chloride Level 102 98-107 MMOL/L Carbon Dioxide Level 23 21-32 MMOL/L Anion Gap 15 H 5-14 MMOL/L Blood Urea Nitrogen 19 H 7-18 MG/DL Creatinine 0.85 0.60-1.30 MG/DL Estimat Glomerular Filtration Rate 72 BUN/Creatinine Ratio 22 Glucose Level 95 70-105 MG/DL Calcium Level 10.0 8.5-10.1 MG/DL Corrected Calcium 8.5-10.1 MG/DL Magnesium Level 2.0 1.6-2.4 MG/DL Total Bilirubin 0.2 0.1-1.0 MG/DL Aspartate Amino Transf (AST/SGOT) 23 5-34 U/L Alanine Aminotransferase (ALT/SGPT) 16 0-55 U/L Alkaline Phosphatase 81 40-136 U/L Troponin I < 0.30 <0.30 NG/ML Total Protein 7.7 6.4-8.2 GM/DL Albumin 4.7 H 3.2-4.5 GM/DL My Orders Orders - OBDULIA MCCULLOUGH DO Cbc With Automated Diff (01/26/23 15:46) Magnesium (01/26/23 15:46) Chest 1 View Ap/Pa Only (01/26/23 15:46) Ekg Tracing (01/26/23 15:46) Comprehensive Metabolic Panel (01/26/23 15:46) Aspirin Chewable Tablet (Baby Aspirin Ch (01/26/23 16:00) Ed Iv/Invasive Line Start (01/26/23 15:46) Troponin I Fs (01/26/23 15:46) Medications Given in ED Current Medications Medications Dose Ordered Sig/Oziel Route Start Time Stop Time Status Last Admin Dose Admin Aspirin 324 mg ONCE ONCE PO 01/26/23 16:00 01/26/23 16:01 DC 01/26/23 16:11 324 MG Vital Signs/I&O 01/26/23 15:45 Temp 36.2 Pulse 101 Resp 18 B/P (MAP) 180/84 (116) Pulse Ox 100 O2 Delivery Room Air Capillary Refill : ECG Comment Independent review of EKG reveals sinus rhythm at 97 bpm. Normal intervals. Normal axis. No ST or T wave abnormalities. No ectopy. Departure Communication (Admissions) Patient is hemodynamically stable. Symptoms most consistent with shingles at this time given that appearance of the rash that she had not previously noticed. She is hemodynamically stable. Her cardiac work-up is negative, EKG is nonischemic. She will be discharged home in stable condition with antivirals, steroids and close follow-up. She is already on gabapentin. Have also given her lidocaine patches which she may use as needed. I have independently reviewed her EKG and chest x-ray. These are negative. Impression Primary Impression: Shingles Qualified Codes: B02.9 - Zoster without complications Disposition: HOME, SELF-CARE Condition: Stable Departure-Patient Inst. Referrals: RONALD MI MD (PCP/Family) Primary Care Physician Patient Instructions: Shingles (DC) Add. Discharge Instructions: Take the medication as prescribed as needed. You may use lidocaine patches on your back area for additional pain control. Follow-up with your primary doctor for any nonemergent needs. Unfortunately it is unknown how long your pain will last and may last longer than the rash itself. Continue to take your gabapentin as previously prescribed. Scripts Prednisone (Prednisone) 50 Mg Tab 50 MG PO DAILY for 5 Days, #5 TAB Prov: OBDULIA MCCULLOUGH DO 01/26/23 Acyclovir (Acyclovir) 800 Mg Tablet 800 MG PO QID for 5 Days, #20 TAB Prov: OBDULIA MCCULLOUGH DO 01/26/23 OBDULIA MCCULLOUGH DO Jan 26, 2023 16:01
--- NOTE | 2023-01-26 16:16 | Diagnostic Imaging Report ---
INDICATION: Chest pain. EXAMINATION: Portable AP view of the chest is obtained. COMPARISON: 10/08/2019. FINDINGS: Heart size and pulmonary vasculature are within normal limits, and the lungs are clear, bilaterally. IMPRESSION: Unremarkable chest. Dictated by: Dictated on workstation # [id number]
[2023-01-26 16:29] LABS: BASOPHILS # (AUTO) 0.1 10^3/uL (0.0-0.1); BASOPHILS % (AUTO) 2 % (0-10); EOSINOPHILS # (AUTO) 0.3 10^3/uL (0.0-0.3); EOSINOPHILS % (AUTO) 4 % (0-10); HEMATOCRIT 39 % (35-52); HEMOGLOBIN 12.9 g/dL (11.5-16.0); LYMPHOCYTES # (AUTO) 1.8 10^3/uL (1.0-4.0); LYMPHOCYTES % (AUTO) 23 % (12-44); MEAN CORPUSCULAR HEMOGLOBIN 28 pg (25-34); MEAN CORPUSCULAR HGB CONC 33 g/dL (32-36); MEAN CORPUSCULAR VOLUME 83 fL (80-99); MEAN PLATELET VOLUME 10.3 fL (9.0-12.2); MONOCYTES # (AUTO) 0.9 10^3/uL (0.0-1.0); MONOCYTES % (AUTO) 11 % (0-12); NEUTROPHILS # (AUTO) 4.8 10^3/uL (1.8-7.8); NEUTROPHILS % (AUTO) 60 % (42-75); PLATELET COUNT 268 10^3/uL (130-400)
[2023-01-26 16:51] LABS: ALKALINE PHOSPHATASE 81 U/L (40-136); BILIRUBIN,TOTAL 0.2 MG/DL (0.1-1.0); BUN/CREATININE RATIO 22; CARBON DIOXIDE 23 MMOL/L (21-32); CHLORIDE 102 MMOL/L (98-107); CREATININE SERUM 0.85 MG/DL (0.60-1.30); GFR ESTIMATED 72; GLUCOSE 95 MG/DL (70-105); POTASSIUM 4.6 MMOL/L (3.6-5.0); SODIUM 140 MMOL/L (135-145)
[2023-01-26 16:52] LABS: ALANINE AMINOTRANSFERASE 16 U/L (0-55); ALBUMIN 4.7 GM/DL (3.2-4.5); TOTAL PROTEIN 7.7 GM/DL (6.4-8.2)
[2023-01-26] MEDS ORDERED: ACYC-112 PO (16:56)
[2023-01-26] MEDS ORDERED: PRD50T PO (16:56)
[2023-01-26] MEDS ORDERED: LIDO700A45 TP (17:00)
== END 2023-01-26 17:15 | disposition home or self-care (01) ==
LOC: EDUNIT# 15:40 → ER FS 15:43
DX: B02.9 Zoster without complications (principal); Z28.310 Unvaccinated for COVID-19
CPT/HCPCS: 36415; 71045; 80053; 83735; 84484; 85025; 93005